=== PATIENT | male | born 1965 | race Caucasian/White ===

== ENCOUNTER → 2019-02-17 14:39 | Outpatient (CLI) | payer OTHER ==
[2013-04-21 09:39] VITALS: BMI 31.0
[~2019-02-17 14:39] MED LIST: BAYER CHEWABLE81 MG PO; PLAVIX75 MG PO; PRAVACHOL40 MG PO; PRILOSEC20 MG
[2019-02-19 09:24] VITALS: BMI 32.4
== END | disposition home or self-care (01) ==
LOC: D.RAD 14:39
PROVIDERS: ATTEND Nurse Practitioner Family
DX: R05 Cough (principal)

== ENCOUNTER 2019-02-18 15:52 | Observation (INO) | payer OTHER ==
[~2019-02-18] VITALS: Ht 177.8 cm; Wt 102.7 kg
--- NOTE | ~2019-02-18 | OP ---
PATIENT NAME: BRITTNEY VENTURA MEDICAL RECORD: [id number] :63 LOCATION:D.M2 D.2115 ADMISSION DATE: SURGEON: LAURI MATHIS MD DATE OF OPERATION: 02/18/2019 PROCEDURES: 1. PTCA stent left circumflex. 2. PTCA stent right coronary artery and PLV. 3. Left heart catheterization. 4. Selective coronary angiography. 5. Left ventriculogram. PROCEDURE IN DETAIL: After informed consent was obtained and after a detailed description of the risks, benefits as well as alternative therapies, the patient elected to proceed with angiogram and angioplasty. The right radial area was prepped, draped in normal sterile fashion. Right radial artery was cannulated via modified Seldinger technique with placement of 6-Nauruan sheath. All catheters exchanged through this sheath. FINDINGS: Left ventriculogram was performed in standard 30-degree ALEMAN view, reveals anterior hypokinesis, but ejection fraction preserved at 50%. SELECTIVE CORONARY ANGIOGRAPHY: 1. Left main is with no significant angiographic disease. 2. Left anterior descending is totally occluded in the mid vessel. Distal left anterior descending fills via right to left collaterals that are well developed. 3. Left circumflex has 90% to 95% stenosis in the mid vessel. 4. Right coronary artery has 90% stenosis times 2 in the RCA and PLV. PTCA STENT OF THE RCA: RCA was addressed with a 3.5 x 22 mm Nhan with PLV 2.5 x 38, 4 mm [place]. Result was 0% residual. PTCA STENT OF THE LEFT CIRCUMFLEX: The stent used was a 3.0 x 15 mm [place], Result was 0% residual stenosis. OVERALL IMPRESSION: Successful PTCA stent of the RCA and left circumflex, both going from 90+ percent initial stenosis to 0% residual. TRANSINT:[id number] Voice Confirmation ID: [id number] DOCUMENT ID: [id number] LAURI MATHIS MD CC: [id number] DICTATION DATE: 02/19/19 1351 RIVET MACHINE OPERATOR: 02/19/19 1747 [facility] [address] [place] [address]
--- NOTE | ~2019-02-18 | DS ---
PATIENT:BRITTNEY SAMSON :63 MEDICAL RECORD: [id number] DISCHARGE SUMMARY ADMISSION DATE: 02/18/19 DISCHARGE DATE: 02/19/19 DATE OF DISCHARGE: 02/19/2019. DIAGNOSES: 1. Non-Q-wave myocardial infarction. 2. Coronary artery disease. 3. PTCA stent right coronary artery and left circumflex this admission. 4. Hyperlipidemia. HOSPITAL COURSE: Mr. Samson presents with a non-Q-wave myocardial infarction, underwent cardiac catheterization revealing severe 3-vessel coronary artery disease, underwent PTCA stent of the RCA and circumflex. He had total occlusion of the LAD, but it fills via right to left collaterals. He was discharged home with addition of aspirin, Plavix, and Pravachol to his medical regimen. No beta fermín was undertaken secondary to bradycardia. He will follow up with [facility] in 1 month. TRANSINT:[id number] Voice Confirmation ID: [id number] DOCUMENT ID: [id number] LAURI MATHIS MD CC: [id number] DICTATION DATE: 02/19/19 1348 RESOURCE SPECIALIST TEACHER: 02/20/19 0606 DEP CLI 02/19/[address] [address]
--- NOTE | ~2019-02-18 | HEMODYNAMI ---
PATIENT:BRITTNEY VENTURA MEDICAL RECORD: [id number] : 63 [id number] ADMISSION DATE: 02/18/19 Generatedon:02/22/20199:22 Patient name: BRITTNEY VENTURA Patient #: [id number] : 1965 Date of study: 02/19/2019 Page: Of Hemodynamic Procedure Report Patient Data Patient Demographics Procedure consent was obtained First Name: BRITTNEY Gender: Male Last Name: AUDREY : 1965 [facility] Initial: Jacinto Age: 53 year(s) Patient #: [id number] Race: SSN: [id number] Additional ID: [id number] Contact details Address: [address] [place] [address] [address] State: [place] City: [place] Zip code: [address] Admission Admission Data Admission Date: 02/18/2019 Admission Time: 15:52 Arrival Date: 02/18/2019 Arrival Time: 15:52 Admit Source: Other Insurance Payor: Private Room #: D.2115 health insurance [facility] #: [id number] Height (in.): 70.08 BSA: 2.2 (m2) Height (cm.): 178 BMI: 32.51 (kg/m2) Weight (lbs.): 227.08 Weight (kg.): 103 Lab Results Lab Result Date: 02/19/2019 Lab Result Time: 0:00 Biochemistry Name Units Result Min Max BUN mg/dl 22 --(----)-* 7 18 Creatinine mg/dl 1.2 --(---*)-- 0.6 1.3 eGFR ml/min 67.29524 *-(----)-- 90 120 NONAFRICAN CBC Name Units Result Min Max Hemoglobin g/dl 13.4 -*(----)-- 13.5 17.5 Procedure Procedure Types Cath Procedure Diagnostic Procedure LHC LHC w/Coronaries Sedation Charges Moderate Sedation up to 30 minutes PCI Procedure Coronary Stent Coronary Stent Initial x2 Coronary Stent Additional Procedure Description Procedure Date Procedure Date: 02/19/2019 Procedure Start Time: 13:20 Procedure End Time: 13:44 Procedure Staff Name Function Fadia Young RT Monitor Colt Yang RN Nurse Conner Iniguez MD Performing Physician Angela Pang RT Scrub Procedure Data Cath Procedure Fluoroscopy Diagnostic fluoroscopy Total fluoroscopy Time: 6.7 time: 6.7 min min Diagnostic fluoroscopy Total fluoroscopy dose: dose: 1298 mGy 1298 mGy Contrast Material Contrast Material Type Amount (ml) Isovue 300 130 Entry Location Entry Primary Successful Side Size Upsize Upsize Entry Closure Rosas ccessful Closure Location (Fr) 1 (Fr) 2 (Fr) Remarks Device Remarks Radial Right 6 Fr Mechanical artery Short Compression Estimated blood loss: 5 ml Diagnostic catheters Device Type Used For End Catheter Placement DIAGNOSTIC [place] 110cm 5 Multi-vessel Fr catheter ([id number]) Angiography Procedure Complications No complications Procedure Medications Medication Administration Route Dosage Oxygen etCO2 Nasal cannula 2 l/min Lidocaine 2% added to field 20 Heparin Flush Bag added to field 2 bags (1000units/500ml NS) 0.9% NaCl I.V. 100 ml/hr Radial Cocktail I.A. 1 syringe (Verapamil 2mg/Nitro 400mcg/Heparin 1500units) Versed I.V. 2 mg Fentanyl I.V. 100 mcg Versed I.V. 2 mg Fentanyl I.V. 100 mcg Heparin Bolus I.V. 4000 units Integrilin (Bolus I.V. 9 ml 2mg/ml) Hemodynamics Rest BSA: 2.2 (m2) HGB: 13.4 (g/dl) O2 Consumption: Estimated: 277.09 (ml/min) O2 Con sumption indexed: Estimated:125.95 (ml/min/m) Heart Rate: 89 (bpm) Pressure Samples Time Site Value (mmHg) Purpose Heart Use Rate(bpm) 13:22 LV 60/8,9 Snapshot 82 Snapshots Pre Cath Intra NCS Post Cath Vital Signs Time Heart Resp SPO2 etCO2 NIBP (mmHg) Rhythm Pain Sedation Rate (ipm) (%) (mmHg) Status Level (bpm) 13:09:10 85 12 100 31.6 146/88(125) NSR 0 (11) 10(A) , No pain 13:13:26 83 15 96 17.3 128/87(98) NSR 0 (11) 10(A) , No pain 13:17:38 69 23 98 28.6 129/77(110) NSR 0 (11) 10(A) , No pain 13:21:56 86 12 98 33.1 123/61(98) NSR 0 (11) 9(A) , No pain 13:26:08 84 11 96 33.1 113/64(82) NSR 0 (11) 9(A) , No pain 13:30:16 86 21 97 35.4 114/70(93) NSR 0 (11) 9(A) , No pain 13:34:24 82 22 97 34.6 118/68(87) NSR 0 (11) 10(A) , No pain 13:38:34 81 13 97 36.1 121/73(87) NSR 0 (11) 10(A) , No pain 13:42:48 73 12 95 36.1 104/60(88) NSR 0 (11) 10(A) , No pain Medications Time Medication Route Dose Verified Delivered Reason Not es Effectiveness by by 13:11:18 Oxygen etCO2 2 l/min Conner Gregory used for Nasal Hira Yang RN procedure cannula 13:11:28 Lidocaine 2% added 20ml Conner Conner for local to vial Hira Iniguez MD anesthetic field 13:11:34 Heparin Flush added 2 bags Conner Prieto used for Bag to Hira Iniguez MD procedure (1000units/500ml field NS) 13:11:42 0.9% NaCl I.V. 100 Conner Gregory Per physician ml/hr Hira Yang RN 13:12:02 Versed I.V. 2 mg Conner Escaleraie for sedation Hira Yang RN 13:12:09 Fentanyl I.V. 100 mcg Conner Escaleraie for sedation Hira Yang RN 13:17:24 Versed I.V. 2 mg Conner Buffie for sedation Hira Yang RN 13:17:30 Fentanyl I.V. 100 mcg Conner Escaleraie for sedation Hira Yang RN 13:21:21 Radial Cocktail I.A. 1 Conner Prieto for (Verapamil syringe Hira Iniguez MD vasodilation 2mg/Nitro 400mcg/Hepari 13:27:43 Heparin Bolus I.V. 4000 Conneraries Escaleraie for nikunj ified units Hira Yang RN anticoagulation with dr iniguez 13:31:19 Integrilin I.V. 9 ml Conner Gregory for was tae 1 (Bolus 2mg/ml) Hira Yang RN antiplatelet ml of therapy vial Procedure Log Time Note 12:49:32 Diagnostic Cath Status : Urgent 12:51:00 Procedure Status Urgent Heart Cath (IP). 12:51:06 Angela Pang RT(R) sent for patient. Start room use. 12:51:07 Time tracking: Regular hours (M-F 7:00 - 5:00) 12:51:11 Plan of Care:Hemodynamics will remain stable., Cardiac rhythm will remain stable., Comfort level will be maintained., Respiratory function will remain adequate., Patient/ family verbilizes understanding of procedure., Procedure tolerated without complication., Recovers from procedure without complications.. 12:52:01 Informed consent obtained and on chart 12:54:54 Admit Source: Other 12:55:02 Arrival Date: 02/18/2019 3:52:00 PM 12:55:16 Insurance Payor : Private health insurance 12:55:26 Patient Height : 70.08 inches 12:55:30 Patient Weight : 227.08 lbs 12:56:46 Lab Result : eGFR NONAFRICAN 67.74309 ml/min 12:56:46 Lab Result : Hemoglobin 13.4 g/dl 12:56:46 Lab Result : BUN 22 mg/dl 12:56:46 Lab Result : Creatinine 1.2 mg/dl 12:56:59 2) 60-89 Mildly reduced kidney function, and other findings (as for stage 1) point to kidney disease. 12:57:09 Maximum allowable contrast dose (3.7 X eGFR X 0.75)185 ml. 12:59:16 Risk of Mortality: 1.1 12:59:19 Risk of blood transfusion: 0.1 12:59:23 Risk of EVETTE: 4.3 12:59:30 Patient received from Med II to CCL 2 Alert and oriented. Tansferred to table in Supine position. 12:59:32 Correct patient and procedure confirmed by team. 12:59:32 Warm blankets applied, and thuy hugger turned on for patient comfort. 12:59:33 ECG and BP/O2 sat monitors applied to patient. 13:08:04 Vital chart was started 13:08:05 Baseline sample Acquired. 13:08:10 Rhythm: sinus tachycardia 13:08:11 Full Disclosure recording started 13:08:15 H&P Date Dictated: 02/19/2019 New H&P dictated by physician.. 13:08:16 Pre-procedure instructions explained to patient. 13:08:17 Pre-op teaching completed and patient verbalized understanding. 13:08:23 Family in patients room. 13:08:25 Patient NPO since Midnight. 13:08:42 Is the patient allergic to Iodine/contrast media? No. 13:08:43 Was the patient premedicated? Yes 13:08:44 Is patient on blood thinner?Yes 13:08:46 ACC The patient was administered the following blood thiners within the last 24 hours: ACCPlavix 13:08:48 Patient diabetic? No. 13:08:52 Previous problem with sedation/anesthesia? No ? 13:08:53 Snore? Yes 13:08:54 Sleep apnea? No 13:08:55 Deviated septum? No 13:08:56 Sticks out tongue? Yes 13:08:56 Opens mouth fully? Yes 13:08:58 Airway obstruction? No ? 13:09:00 Dentures? No ? 13:09:05 Pre procedure: right dorsailis pedis pulse 2+ Normal; easily identifiable; not easily obliterated 13:09:07 Pre procedure: left dorsailis pedis pulse 2+ Normal; easily identifiable; not easily obliterated 13:09:09 Patient pain scale 0/10 ?. 13:09:14 IV patent on arrival in left forearm with 0.9% NaCl at [facility]. 13:09:16 Lab results completed and on chart. 13:09:20 Right Radial & Right Groin area was prepped with chlora-prep and draped in sterile fashion 13:09:21 Sharps counted by scrub and verified by R.N. 13:09:21 Alarms reviewed by R. N. 13::23 Final Timeout: patient, procedure, and site verified with staff and physician. All members of the team are in agreement. 13::23 --------ALL STOP TIME OUT------ 13:09:23 Physician arrived 13:09:25 Right Radial & Right Groin site verified by team. 13:09:29 Fire Safety Assessment: A--An alcohol-based skin anteseptic being used preoperatively., C--Open oxygen or nitrous oxide is being used., D--An ESU, laser, or fiber-optic light is being used. 13:09:32 Physical assessment completed. ASA score P 2 - A patient with mild systemic disease as per Conner Iniguez MD. 13:09:36 Sedation plan: IV Moderate Sedation Medication:Versed, Fentanyl 13:09:42 Use device set Radial Dx or PCI 13:09:43 ACIST Syringe (76379) opened to sterile field. 13:09:44 ACIST Hand Control (57530) opened to sterile field. 13:09:44 Bag Decanter (2002S) opened to sterile field. 13:09:44 Medline Cath Pack ([id number]) opened to sterile field. 13:09:45 ACIST Manifold (32615) opened to sterile field. 13:09:46 Tegaderm 4 x 4 (1626W) opened to sterile field. 13:09:47 MBrace Wrist Support (076873489) opened to sterile field. 13:09:49 SHEATH 6FR RAIN (0404368) opened to sterile field. 13:09:50 EMERALD Guide Wire (581-334) opened to sterile field. 13:11:18 Oxygen 2 l/min etCO2 Nasal cannula was administered by Colt Yang RN; used for procedure; Verbal order read back and verified. 13:11:28 Lidocaine 2% 20ml vial added to field was administered by Conner Iniguez MD; for local anesthetic; Verbal order read back and verified. 13:11:34 Heparin Flush Bag (1000units/500ml NS) 2 bags added to field was administered by Conner Iniguez MD; used for procedure; Verbal order read back and verified. 13:11:42 0.9% NaCl 100 ml/hr I.V. was administered by Colt Yang RN; Per physician; Verbal order read back and verified. 13:12:02 Versed 2 mg I.V. was administered by Colt Yang RN; for sedation; Verbal order read back and verified. 13:12:09 Fentanyl 100 mcg I.V. was administered by Colt Yang RN; for sedation; Verbal order read back and verified. 13:16:00 Zero performed for pressure channel P1 13:16:27 Zero performed for pressure channel P1 13:17:24 Versed 2 mg I.V. was administered by Colt Yang RN; for sedation; Verbal order read back and verified. 13:17:30 Fentanyl 100 mcg I.V. was administered by Colt Yang RN; for sedation; Verbal order read back and verified. 13:18:03 Zero performed for pressure channel P1 13:19:42 Procedure started. 13:20:02 Local anesthetic to right radial artery with Lidocaine 2% by Conner Iniguez MD.INITIAL ACCESS ONLY 13:20:17 A 6 Fr Short sheath was inserted into the Right Radial artery 13:21:04 A DIAGNOSTIC [place] 110cm 5 Fr catheter ([id number]) was advanced over the wire and used for Multi-vessel Angiography. 13:21:21 Radial Cocktail (Verapamil 2mg/Nitro 400mcg/Heparin 1500units) 1 syringe I.A. was administered by Conner Iniguez MD; for vasodilation; Verbal order read back and verified. 13:22:11 LV hemodynamics recorded. 13:22:12 LV gram done using ALEMAN 13:22:15 Injector settings: Ml/sec: 5, Volume: 15, 13:22:28 EF : 50 % 13:22:43 LCA angiography performed. 13:23:19 Injector settings: Ml/sec: 3, Volume: 6, 13:24:03 Catheter removed. 13:25:06 GUIDE 6FR AR 2.0 catheter ([id number]) opened to sterile field. 13:25:13 6 Fr ar 2 guide catheter was inserted over the wire 13:25:39 RCA angiography performed. 13:25:42 Injector settings: Ml/sec: 3, Volume: 6, 13:26:52 ACCDominant side:Co-Dominant 13:26:52 GUIDE 6FR XBLAD 3.5 catheter ([id number]) opened to sterile field. 13:26:53 INFLATOR Merit BasixCompak (XY9587) opened to sterile field. 13:26:59 Proceeding to intervention. 13:27:43 Heparin Bolus 4000 units I.V. was administered by Colt Yang RN; for anticoagulation; verified with dr iniguez Verbal order read back and verified. 13:28:13 asahi minamo wire opened to sterile field 13:28:14 minamo wire advanced. 13:29:27 ACC Pre-intervention HILTON Flow is 3. 13:29:37 Pre PCI Site: [place] PLB has 90% stenosis. 13:29:40 Place stent Inflation Number: 1 A REKHA RX 2.5 x 34 stent ([id number]) was prepped and advanced across the R PAV 90. The stent was deployed at 13 [place] for 0:10 (min:sec) 0. 13:30:30 Stent catheter was removed intact over wire. 13:31:19 Integrilin (Bolus 2mg/ml) 9 ml I.V. was administered by Colt Yang RN; for antiplatelet therapy; wasted 1 ml of vial Verbal order read back and verified. 13:31:32 Pre PCI Site: [place] mRCA has 90% stenosis. 13:31:38 Place stent Inflation Number: 1 A REKHA RX 3.5 x 22 stent ([id number]) was prepped and advanced across the Mid RCA 90. The stent was deployed at 13 [place] for 0:10 (min:sec) 0. 13:32:07 Post PCI Site: [place] PLB has 0% stenosis. 13:32:12 Post PCI Site: [place] mRCA has 0% stenosis. 13:32:29 Stent catheter was removed intact over wire. 13:32:39 Guide catheter removed. 13:32:39 Wire removed. 13:32:52 6 Fr xblad 3.5 guide catheter was inserted over the wire 13:34:43 minamo wire advanced. 13:35:25 Wire advanced across lesion. 13:36:53 ACC Pre-intervention HILTON Flow is 3. 13:37:01 Pre PCI Site: [place] mCirc has 90% stenosis. 13:37:33 Place stent Inflation Number: 1 A REKHA RX 3.0 x 15 stent ([id number]) was prepped and advanced across the Mid CX 90. The stent was deployed at 11 [place] for 0:10 (min:sec) 0. 13:37:37 Stent catheter was removed intact over wire. 13:37:38 Post PCI Site: [place] mCirc has 0% stenosis. 13:37:38 ACC Post-intervention HILTON Flow is 3. 13:37:38 Wire removed. 13:37:38 Guide catheter removed. 13:37:43 ZEPHYR REGULAR TR BAND (838773) opened to sterile field. 13:37:58 Sheath removed intact; hemostasis achieved with Mechanical Compression to the Right Radial artery. 13:38:55 Procedure ended.(Physican Out) 13:39:08 Fluoroscopy time 06.70 minutes. 13:39:12 Fluoroscopy dose: 1298 mGy 13:39:12 Flurop Dose total: 1298 13:39:18 Dose Area Product 70289 mGy/cm. 13:39:28 Contrast amount:Isovue 300 130ml. 13:40:16 Maximum allowable dose exceeded? No. 13:40:17 Sharps counted by scrub and verified by R.N. 13:40:20 [place] band inflated with 10cc of air. 13:40:21 Insertion/operative site no bleeding no hematoma. 13:40:25 Post-op/insertion site Right Radial artery dressed using a 4 x 4 and Tegaderm. 13:40:27 Post Procedure Pulses reassessed and unchanged 13:40:36 Post procedure rhythm: unchanged. 13:40:45 Estimated blood loss: 5 ml 13:40:48 Patient needs reinforcement of post procedure teaching. 13:40:48 Post procedure instruction explained to patient.Patient verbalizes understanding. 13:41:20 Procedure type changed to Cath procedure, Diagnostic procedure, LHC, C w/Coronaries, Sedation Charges, Moderate Sedation up to 30 minutes, PCI procedure, Coronary Stent, Coronary Stent Initial x2, Coronary Stent Additional 13:43:44 Procedure and supply charges have been captured, reviewed, submitted and are correct. 13:43:51 Procedure Complication : No complications 13:44:02 Vital chart was stopped 13:44:04 [facility] Findings: MVD- PCI performed (see procedure note) 13:44:06 Operative report dictated upon procedure completion. 13:44:07 See physician's report for complete and final results. 13:44:10 Report given to [facility]. 13:44:13 Patient transfered to [facility] with Stretcher. 13:44:15 Full Disclosure recording stopped 13:44:15 Procedure ended. 13:44:25 ACC-PCI Only Patient was given prescriptions, or instructed by Conner Iniguez MD to start/continue the following medications upon discharge: Plavix 13:44:28 End room use (Document Last) 13:37:38 ACT drawn and resulted at OOR seconds. (normal therapeutic range 180-240 seconds). Intervention Summary Intervention Notes Time ActionType Lesion and Equipment Used Action# Pressure Duration Attributes 13:29:40 Place stent R PAV REKHA RX 2.5 x 1 13 00:10 34 stent ([id number]) 13:31:38 Place stent Mid RCA REKHA RX 3.5 x 1 13 00:10 22 stent ([id number]) 13:37:33 Place stent Mid CX REKHA RX 3.0 x 1 11 00:10 15 stent ([id number]) Device Usage Item Name Manufacture Quantity Catalog Hospital Part Current [facility] Lot# / Number Charge Number Stock Stock Serial# Code ACIST Syringe Acist 1 95668 794091 584533 124167 20 (27567) Medical Systems Inc Medline Cath Medline 1 [id number] 732804 98756 532120 5 Pack ([id number]) Bag Decanter Microtek 1 2002S 034917 23471 065633 5 (2002S) Medical Inc. ACIST Hand Acist 1 88147 230250 848473 111031 5 Control Medical (09664) Systems Inc ACIST Manifold Acist 1 13378 570594 876281 804132 5 (98575) Medical Systems Inc Tegaderm 4 x 4 3M 1 1626W 916568 032062 762118 5 (1626W) MBrace Wrist Advanced 1 140-0250-00 129382 50710 741789 5 Support Vascular (563809677) Dynamics SHEATH 6FR Cardinal 1 3965930 187557 7909907 943592 5 RAIN (1912839) Health EMERALD Guide Cardinal 1 502-455 631562 931644 869300 5 Wire (502-455) Health DIAGNOSTIC Terumo 1 40-4173 367169 102130 874485 5 [place] 110cm 5 Fr catheter (357890) GUIDE 6FR AR Medtronic 1 [id number] 102683 26176 186048 1 2.0 catheter (VR9TI53) GUIDE 6FR Cardinal 1 [id number] 474882 607409 661172 10 XBLAD 3.5 Health catheter (08255293) INFLATOR Merit Merit 1 GS3358 929527 222681 764874 15 comScore (IZ3080) REKHA RX 2.5 x Medtronic 1 [id number] 200254 9811360 723719 5 [id number] 34 stent ([id number]) REKHA RX 3.5 x Medtronic 1 [id number] 481024 8256552 274487 5 [id number] 22 stent ([id number]) REKHA RX 3.0 x Medtronic 1 [id number] 969988 4963804 455307 5 [id number] 15 stent ([id number]) ZEPHYR REGULAR Cardinal 1 629527 084231 6052373 684322 5 [facility] (127440) Signature Audit [place] Stage Time Signature Unsigned Intra-Procedure 02/19/2019 Fadia Young 1:47:34 PM RT(R) Intra-Procedure 02/19/2019 Colt Yang RN 1:47:59 PM Intra-Procedure 02/19/2019 Conner Iniguez MD 1:48:20 PM 02/22/2019 9:21:10 AM Intra-Procedure 02/22/2019 Conner Iniguez 9:22:50 AM [id number] [place] [address]
[~2019-02-18 15:52] MED LIST changes: -BAYER CHEWABLE81 MG PO; -PLAVIX75 MG PO; -PRAVACHOL40 MG PO
[2019-02-18 16:25] LABS: BASOPHILS 0.4 % (0-2); EOSINOPHILS 0.7 % (0-7); HEMATOCRIT 42.5 % (42.0-54.0); HEMOGLOBIN 14.3 g/dL (13.5-17.5); IMMATURE GRANULOCYTES 0.9 % (0-5); LYMPHOCYTES 25.4 % (15-50); MCH 30.2 pg (26.0-34.0); MCHC 33.6 g/dL (31.0-37.0); MCV 89.9 fL (80.0-100.0); MEAN PLATELET VOLUME 9.5 fL (7.4-10.4); MONOCYTES 8.2 % (2-11); NEUTROPHILS 64.4 % (40-80); PLATELET COUNT 170 10x3/uL (130-400); RBC 4.73 10x6/uL (4.20-6.10); RDW 12.6 % (11.5-14.5); WBC 5.6 10x3/uL (4.8-10.8)
[2019-02-18 16:50] LABS: APTT 44.7 SECONDS (22.8-39.4); INR 1.15 (0.85-1.17); PROTIME 14.2 SECONDS (11.6-15.0)
[2019-02-18 16:58] LABS: CALC OSMOLALITY 284 mosm/kg (275-300); CALCIUM 9.2 mg/dL (8.5-10.1); CARBON DIOXIDE 28.4 mmol/L (21.0-32.0); CHLORIDE - SERUM 106 mmol/L (98-107); CREATININE - SERUM 1.3 mg/dL (0.6-1.3); GLUCOSE 98 mg/dL (74-106); POTASSIUM - SERUM 3.8 mmol/L (3.5-5.1); SODIUM 141 mmol/L (136-145); UREA NITROGEN 24 mg/dL (7-18); eGFR NON AFRICAN AMERICAN 61 mL/min (90-120)
[2019-02-18 17:14] LABS: ALBUMIN 3.9 g/dL (3.4-5.0); ALKALINE PHOSPHATASE 67 U/L (46-116); ALT (SGPT) 49 U/L (10-68); BILIRUBIN - TOTAL 0.25 mg/dL (0.2-1.3); CKMB 1.5 U/L (0.0-3.6); CREATINE KINASE 82 UL (21-232); MAGNESIUM - SERUM 1.8 mg/dL (1.8-2.4); PROTEIN - SERUM 7.5 g/dL (6.4-8.2); TROPONIN-I < 0.017 ng/mL (0.000-0.060)
--- NOTE | 2019-02-18 19:39 | NUR ---
RECEIVED BEDSIDE REPORT. PATIENT IS ALERT AND ORIENTED, RESTING COMFORTABLY IN BED. RESPIRATIONS ARE EVEN AND UNLABORED. NO S/S OF DISTRESS. NO C/O PAIN. CALL LIGHT WITHIN REACH. WILL CPOC.
[2019-02-18 20:00] VITALS: BP 142/88
[2019-02-19 00:58] VITALS: BP 107/66; BMI 32.4
[2019-02-19 02:44] LABS: BASOPHILS 0.4 % (0-2); EOSINOPHILS 1.5 % (0-7); HEMATOCRIT 39.5 % (42.0-54.0); HEMOGLOBIN 13.4 g/dL (13.5-17.5); IMMATURE GRANULOCYTES 0.7 % (0-5); LYMPHOCYTES 29.5 % (15-50); MCHC 33.9 g/dL (31.0-37.0); MCV 88.6 fL (80.0-100.0); MEAN PLATELET VOLUME 9.2 fL (7.4-10.4); MONOCYTES 9.5 % (2-11); NEUTROPHILS 58.4 % (40-80); PLATELET COUNT 164 10x3/uL (130-400); RBC 4.46 10x6/uL (4.20-6.10); RDW 12.6 % (11.5-14.5); WBC 5.4 10x3/uL (4.8-10.8)
[2019-02-19 03:13] LABS: ALBUMIN 3.1 g/dL (3.4-5.0); ALKALINE PHOSPHATASE 53 U/L (46-116); ALT (SGPT) 40 U/L (10-68); BILIRUBIN - TOTAL 0.35 mg/dL (0.2-1.3); CALC OSMOLALITY 283 mosm/kg (275-300); CALCIUM 8.4 mg/dL (8.5-10.1); CARBON DIOXIDE 25.7 mmol/L (21.0-32.0); CHLORIDE - SERUM 108 mmol/L (98-107); CREATINE KINASE 73 UL (21-232); CREATININE - SERUM 1.2 mg/dL (0.6-1.3); GLUCOSE 96 mg/dL (74-106); POTASSIUM - SERUM 4.1 mmol/L (3.5-5.1); PROTEIN - SERUM 5.9 g/dL (6.4-8.2); SODIUM 141 mmol/L (136-145); UREA NITROGEN 22 mg/dL (7-18); eGFR NON AFRICAN AMERICAN 67 mL/min (90-120)
[2019-02-19 03:16] LABS: TROPONIN-I 0.336 ng/mL (0.000-0.060)
[2019-02-19 06:37] LABS: CKMB 2.3 U/L (0.0-3.6); CREATINE KINASE 71 UL (21-232)
[2019-02-19 06:38] LABS: TROPONIN-I 0.247 ng/mL (0.000-0.060)
[2019-02-19 08:05] VITALS: BP 131/82
[2019-02-19 09:24] VITALS: Ht 177.8 cm; Wt 102.7 kg
[2019-02-19 13:15] VITALS: BP 130/73
--- NOTE | 2019-02-19 13:44 | HP ---
PATIENT: BRITTNEY VENTURA MEDICAL RECORD: [id number] ACCOUNT: [id number] LOCATION:[facility].2115 : 63 ADMISSION DATE: 02/18/19 PCP: DALE MILLAN MD HISTORY AND PHYSICAL EXAMINATION DIAGNOSES: 1. Non-Q-wave myocardial infarction. 2. Coronary artery disease. 3. Previous percutaneous transluminal coronary angioplasty stent. 4. Hyperlipidemia. HISTORY OF PRESENT ILLNESS: This is a gentleman who has a past history of coronary artery disease. Last cardiac intervention was years ago. For 1 month, he has been having episodes of chest pain, worsened. His troponin is positive. The EKG has nonspecific ST-T abnormalities in the lateral leads. PHYSICAL EXAMINATION: CONSTITUTIONAL/GENERAL APPEARANCE: Well nourished, well developed, appears stated age. EYES: Lids and conjunctivae noninjected. No discharge. No pallor. ENT: Lips within normal limit. No cyanosis. No pallor. NECK: Carotid arteries, bilateral normal upstroke. No bruits. No thrills. No jugular venous pressure or distention. CERVICAL LYMPH NODES: Nontender. Nonenlarged. THYROID: Not enlarged. No nodules. CARDIOVASCULAR: Precordial exam, nondisplaced. No heaves or pericardial thrills. Rate and rhythm, regular. Heart sounds, normal S1, normal S2. No S3, no gallop, no rub. Systolic murmur, not heard. Diastolic murmur, not heard. RESPIRATORY: Respiratory effort, unlabored. Normal curvature. No thoracic deformity. No chest wall tenderness. Percussion, resonant. Auscultation, clear. No wheezes, no rales, no rhonchi. ABDOMEN: Soft, nondistended, nontender. No abdominal pain, no vomiting and normal appetite. MUSCULOSKELETAL: No joint tenderness, normal gait, normal tone. SKIN: Warm and dry. OVERALL IMPRESSION: Non-Q-wave myocardial infarction. At this time, we will load him with Plavix. He has already received aspirin, heart rates in the 60s and systolic blood pressure is 107. Hence, there is little room for further medical management. We will proceed with coronary angiography. Further care depends upon the findings of the angiography. TRANSINT:[id number] Voice Confirmation ID: [id number] DOCUMENT ID: [id number] LAURI MATHIS MD at 1344 CC: [id number] DICTATION DATE: 02/19/19925 COAL SCREENER: 02/19/[address] [facility] [address] [place] [address]
[2019-02-19] MEDS ORDERED: PRAVACHOL40 MG PO ×2 (15:04→15:11)
[2019-02-19] MEDS ORDERED: PLAVIX75 MG PO ×2 (15:04→15:11)
[2019-02-19] MEDS ORDERED: BAYER CHEWABLE81 MG PO ×2 (15:08→15:11)
[2019-02-19 16:22] VITALS: BP 117/74
--- NOTE | 2019-02-19 17:53 | NUR ---
REVIEWED DISCHARGE INSTRUCTIONS WITH PT STATES UNDERSTANDING COPY GIVEN DCD SALINE LOCK TO RAC WITH IV CATHETER INTACT SITE FREE OF REDNESS OR EDEMA PT DISCHARGED HOME IN STABLE CONDITION WITH ALL PERSONAL BELONGINGS VIA W/C NAD NOTED
== END 2019-02-19 17:53 | disposition home or self-care (01) ==
LOC: D.M2 15:52 → D.ER 15:52 → OBSVTIME 17:25 → D.ER 17:25 → D.M2 17:25 → EDSTATUS 17:44 → D.M2 02-19 17:53
PROVIDERS: Family Medicine; ADMIT Internal Medicine Interventional Cardiology; ATTEND Internal Medicine Interventional Cardiology
DX: I21.4 Non-ST elevation (NSTEMI) myocardial infarction (principal); I25.10 Atherosclerotic heart disease of native coronary artery without angina pectoris; E78.5 Hyperlipidemia, unspecified

== ENCOUNTER 2019-07-06 10:10 | Outpatient (CLI) | payer OTHER ==
[~2019-07-06] VITALS: Ht 177.8 cm; Wt 97.7 kg
--- NOTE | ~2019-07-06 | HEMODYNAMI ---
PATIENT:BRITTNEY VENTURA MEDICAL RECORD: [id number] : 63 LOCATION:[facility] ADMISSION DATE: 07/06/19 Generatedon:07/06/201916:30 Patient name: BRITTNEY VENTURA Patient #: [id number] : 1965 Date of study: 07/06/2019 Page: Of Hemodynamic Procedure Report Patient Data Patient Demographics Procedure consent was obtained First Name: BRITTNEY Gender: Male Last Name: AUDREY : 1965 [facility] Initial: K Age: 54 year(s) Patient #: [id number] Race: SSN: [id number] Additional ID: [id number] Contact details [address]: [address] [place] [address] [address] State: [place] City: [place] Zip code: [address] Past Medical History Allergies: No known allergies Admission Admission Data Admission Date: 07/06/2019 Admission Time: 10:10 Arrival Date: 07/06/2019 Arrival Time: 0:00 Insurance Payor: Private health insurance [facility] #: [id number] Height (in.): 70.08 BSA: 2.16 (m2) Height (cm.): 178 BMI: 30.93 (kg/m2) Weight (lbs.): 216.05 Weight (kg.): 98 Lab Results Lab Result Date: 07/06/2019 Lab Result Time: 0:00 Biochemistry Name Units Result Min Max BUN mg/dl 19 --(----)*- 7 18 Creatinine mg/dl 1.4 --(----)*- 0.6 1.3 eGFR ml/min 56 *-(----)-- 90 120 NONAFRICAN CBC Name Units Result Min Max Hematocrit % 44.9 --(*---)-- 42 54 Hemoglobin g/dl 15.1 --(-*--)-- 13.5 17.5 Procedure Procedure Types Cath Procedure Diagnostic Procedure [facility] w/Coronaries Sedation Charges Moderate Sedation up to 15 minutes Procedure Description Procedure Date Procedure Date: 07/06/2019 Procedure Start Time: 16:16 Procedure End Time: 16:28 Procedure Staff Name Function Pierre Arias MD Performing Physician Sera Chandra RT Monitor Angela Pang RT Scrub Hetal Serrano RN Nurse Rylee Tian RT Laboratory Administrative Director Procedure Data Cath Procedure Fluoroscopy Diagnostic fluoroscopy Total fluoroscopy Time: 1.5 time: 1.5 min min Diagnostic fluoroscopy Total fluoroscopy dose: 601 dose: 601 mGy mGy Contrast Material Contrast Material Type Amount (ml) Isovue 300 47 Entry Location Entry Primary Successful Side Size Upsize Upsize Entry Closure Rosas ccessful Closure Location (Fr) 1 (Fr) 2 (Fr) Remarks Device Remarks Radial Right 6 Fr Mechanical artery Short Compression Estimated blood loss: 5 ml Diagnostic catheters Device Type Used For End Catheter Placement DIAGNOSTIC Spencer 110cm 5 Procedure Fr catheter ([id number]) Procedure Complications No complications Procedure Medications Medication Administration Route Dosage 0.9% NaCl I.V. 100 ml/hr Oxygen etCO2 Nasal cannula 2 l/min Lidocaine 2% added to field 20 Heparin Flush Bag added to field 2 bags (1000units/500ml NS) Radial Cocktail added to field 1 syringe (Verapamil 2mg/Nitro 400mcg/Heparin 1500units) Versed I.V. 2 mg Fentanyl I.V. 50 mcg Versed I.V. 2 mg Fentanyl I.V. 50 mcg Hemodynamics Rest BSA: 2.16 (m2) HGB: 15.1 (g/dl) O2 Consumption: Estimated: 247.73 (ml/min) O2 Co nsumption indexed: Estimated:114.69 (ml/min/m) Heart Rate: 60 (bpm) Pressure Samples Time Site Value (mmHg) Purpose Heart Use Rate(bpm) 16:20 LV 102/8,11 Snapshot 68 16:21 AO 91/64(77) Pullback 68 16:21 LV 77/1,7 Pullback 68 Gradients Valve Time Site 1 Site 2 Mean SEP/DFP Peak To Heart Use (mmHg) (sec/min) Peak Rate (mmHg) (bpm) Aortic 16:21 LV AO 0 68 77/1,7 91/64(77) Calculations Valve P-P Mean Valve Index Valve Source Name Gradient Area Flow (cm2) Aortic 0 0 Snapshots Pre Cath Intra NCS Post Cath Vital Signs Time Heart Resp SPO2 etCO2 NIBP (mmHg) Rhythm Pain Sedation Rate (ipm) (%) (mmHg) Status Level (bpm) 16:07:42 67 13 99 32.6 144/78(124) NSR 0 (11) 10(A) , No pain 16:12:04 65 13 100 34.5 143/84(121) NSR 0 (11) 10(A) , No pain 16:16:26 62 12 96 33.7 121/81(94) NSR 0 (11) 10(A) , No pain 16:20:44 67 13 98 37.4 120/68(85) NSR 0 (11) 10(A) , No pain 16:25:01 70 12 97 39.7 124/72(101) NSR 0 (11) 10(A) , No pain Medications Time Medication Route Dose Verified Delivered Reason Notes E ffectiveness by by 16:08:02 0.9% NaCl I.V. 100 Pierre Hetal used for ml/hr Hugo Zach procedure MD BISHOP 16:08:09 Oxygen etCO2 2 l/min Pierre Hetal used for Nasal Hugo Zach procedure cannula MD BISHOP 16:08:15 Lidocaine 2% added 20ml Pierre Jay for local [facility] MD VARGAS 16:08:19 Heparin Flush added 2 bags Pierre Jay used for Bag to [facility] procedure (1000units/500ml field MD VARGAS NS) 16:08:25 Radial Cocktail added 1 Pierre Jay used for (Verapamil to syringe Hugo Hugo procedure 2mg/Nitro field MD VARGAS 400mcg/Heparin 1500units) 16:12:05 Versed I.V. 2 mg Pierre Hetal for HugoDevang Serrano sedation MD BISHOP 16:12:14 Fentanyl I.V. 50 mcg Pierre Hetal for HugoDevang Serrano sedation MD BISHOP 16:18:36 Versed I.V. 2 mg Pierre Hetal for HugoDevang Serrano sedation MD BISHOP 16:18:41 Fentanyl I.V. 50 mcg Pierre Hetal for HugoDevang Serrano sedation MD BISHOPdigital marketing program manager Log Time Note 15:53:06 Informed consent obtained and on chart 15:53:32 Procedure Status Urgent Heart Cath (IP). 15:53:33 Time tracking: Regular hours (M-F 7:00 - 5:00) 15:53:36 Plan of Care:Hemodynamics will remain stable., Cardiac rhythm will remain stable., Comfort level will be maintained., Respiratory function will remain adequate., Patient/ family verbilizes understanding of procedure., Procedure tolerated without complication., Recovers from procedure without complications.. 15:54:04 Rylee Tian RT(R) sent for patient. Start room use. 16:00:37 Arrival Date: 07/06/2019 12:00:00 AM 16:01:37 Patient Height : 70.08 inches 16:01:43 Patient Weight : 216.05 lbs 16:02:14 Insurance Payor : Private health insurance 16:03:26 Lab Result : Hemoglobin 15.1 g/dl 16:03:26 Lab Result : eGFR NONAFRICAN 56 ml/min 16:03:26 Lab Result : BUN 19 mg/dl 16::26 Lab Result : Creatinine 1.4 mg/dl 16:03: Lab Result : Hematocrit 44.9 % 16:04:11 Patient received from ED to CCL 2 Alert and oriented. Tansferred to table in Supine position. 16:04:13 Warm blankets applied, and thuy hugger turned on for patient comfort. 16:04:14 Correct patient and procedure confirmed by team. 16:04:15 ECG and BP/O2 sat monitors applied to patient. 16:06:26 Vital chart was started 16:06:28 Baseline sample Acquired. 16:06:34 Rhythm: sinus rhythm 16:06:36 Full Disclosure recording started 16:06:36 - 16:06:56 H&P Date Dictated: 07/06/2019 Emergent; H&P N/A, ER History on chart.. 16:06:58 Pre-procedure instructions explained to patient. 16:06:59 Pre-op teaching completed and patient verbalized understanding. 16:07:02 Family unavailable. 16:07:04 Patient NPO since Midnight. 16:07:15 Patient allergic to No known allergies 16:07:19 Is the patient allergic to Iodine/contrast media? No. 16:07:21 Was the patient premedicated? Yes 16:07:50 Is patient on blood thinner?Yes 16:07:55 ACC The patient was administered the following blood thiners within the last 24 hours: ACCPlavix 16:07:58 Patient diabetic? No. 16:08:02 0.9% NaCl 100 ml/hr I.V. was administered by Hetal Serrano RN; used for procedure; Verbal order read back and verified. 16:08:08 ----Pre-sedation anethsthesia assessment.---- 16:08:09 Oxygen 2 l/min etCO2 Nasal cannula was administered by Hetal Serrano RN ; used for procedure; Verbal order read back and verified. 16:08:12 Previous problem with sedation/anesthesia? No ? 16:08:14 Snore? Yes 16:08:15 Lidocaine 2% 20ml vial added to field was administered by Pierre Arias MD; for local anesthetic; Verbal order read back and verified. 16:08:16 Sleep apnea? No 16:08:18 Deviated septum? Unknown 16:08:19 Heparin Flush Bag (1000units/500ml NS) 2 bags added to field was administered by Pierre Arias MD; used for procedure; Verbal order read back and verified. 16:08:20 Opens mouth fully? Yes 16:08:23 Sticks out tongue? Yes 16:08:25 Radial Cocktail (Verapamil 2mg/Nitro 400mcg/Heparin 1500units) 1 syring e added to field was administered by Pierre Arias MD; used for procedure; Verbal order read back and verified. 16:08:26 Airway obstruction? No ? 16:08:29 Dentures? No ? 16:11:00 Pre procedure: right dorsailis pedis pulse 1+ Palpable, but thready & weak; easily obliterated 16:11:13 IV patent on arrival in left forearm with 0.9% NaCl at [facility]. 16:11:20 Lab results completed and on chart. 16:11:28 Stress Test: no; N/A ? 16:11:39 Right Radial & Right Groin area was prepped with chlora-prep and draped in sterile fashion 16:11:41 Alarms reviewed by R. N. 16:11:42 Sharps counted by scrub and verified by Beba 16:11:46 Physician arrived 16:11:47 --------ALL STOP TIME OUT------ 16:11:48 Final Timeout: patient, procedure, and site verified with staff and physician. All members of the team are in agreement. 16:11:52 Right Radial & Right Groin site verified by team. 16:11:59 Fire Safety Assessment: A--An alcohol-based skin anteseptic being used preoperatively., C--Open oxygen or nitrous oxide is being used., D--An ESU, laser, or fiber-optic light is being used. 16:12:05 Versed 2 mg I.V. was administered by Hetal Serrano RN; for sedation; Verbal order read back and verified. 16:12:05 Physical assessment completed. ASA score P 2 - A patient with mild systemic disease as per Pierre Arias MD. 16:12:12 3a) 45-59 Moderately reduced kidney function. 16:12:14 Fentanyl 50 mcg I.V. was administered by Hetal Serrano RN; for sedation ; Verbal order read back and verified. 16:12:16 Maximum allowable contrast dose (3.7 X eGFR X 0.75)155 ml. 16:12:22 Sedation plan: IV Moderate Sedation Medication:Versed, Fentanyl 16:12:28 Use device set Radial Dx or PCI 16:12:32 ACIST Syringe (44675) opened to sterile field. 16:12:33 Medline Cath Pack ([id number]) opened to sterile field. 16:12:34 Bag Decanter (2002) opened to sterile field. 16:12:35 ACIST Hand Control (72991) opened to sterile field. 16:12:36 ACIST Manifold (52514) opened to sterile field. 16:12:42 EMERALD Guide Wire (402-558) opened to sterile field. 16:12:52 SHEATH 6FR RAIN (9502504) opened to sterile field. 16:12:56 MBrace Wrist Support (180168529) opened to sterile field. 16:13:28 ACC Patient presents with Stable Angina CCS Anginal Class 4--Inability to carry out any physical activity w/o angina. Angina may occur at rest. 16:16:25 Procedure started. 16:16:45 Local anesthetic to right radial artery with Lidocaine 2% by Pierre Arias MD.INITIAL ACCESS ONLY 16:16:47 SERA NOTIFIED PROCEDURE HAD STARTED. 16:16:58 Risk of Mortality: 2.6 16:17:03 Risk of blood transfusion: 0.9 16:17:08 Risk of EVETTE: 5.2 16:17:56 Zero performed for pressure channel P1 16:18:36 Versed 2 mg I.V. was administered by Hetal Serrano RN; for sedation; Verbal order read back and verified. 16:18:41 Fentanyl 50 mcg I.V. was administered by Hetal Serrano RN; for sedation ; Verbal order read back and verified. 16:18:57 A 6 Fr Short sheath was inserted into the Right Radial artery 16:19:27 A DIAGNOSTIC Spencer 110cm 5 Fr catheter (283206) was advanced over the wire and used for Procedure. 16:20:03 Zero performed for pressure channel P1 16:20:22 Zero performed for pressure channel P1 16:20:42 LV gram done using ALEMAN 16:20:43 LV hemodynamics recorded. 16:20:48 EF : 55 % 16:21:01 Injector settings: Ml/sec: 5, Volume: 15, 16:21:27 LCA angiography performed. 16:21:56 Injector settings: Ml/sec: 3, Volume: 6, 16:23:08 RCA angiography performed. 16:23:12 Injector settings: Ml/sec: 3, Volume: 6, 16:23:59 Catheter removed. 16:24:12 ZEPHYR REGULAR TR BAND (211823) opened to sterile field. 16:24:42 Sheath removed intact; hemostasis achieved with Mechanical Compression to the Right Radial artery. 16:24:44 Procedure ended.(Physican Out) 16:25:04 Contrast amount:Isovue 300 47ml. 16:25:13 Fluoroscopy time 01.50 minutes. 16:25:19 Flurop Dose total: 601 16:25:19 Fluoroscopy dose: 601 mGy 16:25:29 Dose Area Product 09927 mGy/cm. 16:26:37 Maximum allowable dose exceeded? No. 16:26:39 Sharps counted by scrub and verified by R.N. 16:26:43 [place]ier band inflated with 10cc of air. 16:26:53 Post right radial artery:stable 16:27:01 Post-procedure physical assessment completed. ASA score P 2 - A patient with mild systemic disease as per Pierre Arias MD. 16:27:06 Post procedure rhythm: unchanged. 16:27:11 Estimated blood loss: 5 ml 16:27:12 Post procedure instruction explained to patient.Patient verbalizes understanding. 16:27:14 Patient needs reinforcement of post procedure teaching. 16:27:27 Procedure type changed to Cath procedure, Diagnostic procedure, LHC, C w/Coronaries, Sedation Charges, Moderate Sedation up to 15 minutes 16:27:29 Procedure and supply charges have been captured, reviewed, submitted an d are correct. 16:27:39 Procedure Complication : No complications 16:27:42 Vital chart was stopped 16:27:45 [facility] Findings: mild to moderate CAD (<70%) 16:27:51 Operative report dictated upon procedure completion. 16:27:57 See physician's report for complete and final results. 16:28:08 Report given to Pre/Post Procedure Room. 16:28:14 Patient transfered to Pre/Post Procedure Room with Stretcher. 16:28:19 Procedure ended. 16:28:19 Full Disclosure recording stopped Device Usage Item Name Manufacture Quantity Catalog Hospital Part Current Minima l Lot# / Number Charge Number Stock Stock Serial# Code ACIST Acist 1 90051 949993 [id number] 20 Syringe Medical (95747) Systems Inc Medline Medline 1 [id number] [id number] 33102 443143 5 Cath Pack ([id number]) Bag Microtek 1 235935 80614 046725 5 Decanter Medical Inc. () ACIST Hand Acist 1 02526 900293 819798 595583 5 Control Medical (87783) Systems Inc ACIST Acist 1 55907 497472 177131 595714 5 Manifold Medical (38321) Systems Inc EMERALD Cardinal 1 502-455 529760 143053 394747 5 Guide Wire Health (502-455) SHEATH 6FR Cardinal 1 6656384 158579 9291381 998136 5 [facility] Deemelo (0505894) MBrace Advanced 1 140-0250-00 921023 61868 702657 5 Wrist Vascular Support Dynamics ([id number]) DIAGNOSTIC Terumo 1 40-7529 954387 087985 198124 5 Spencer 110cm 5 Fr catheter (610541) ZEPHYR Cardinal 1 540052 884234 1663297 933869 5 REGULAR TR Health BAND (598359) Signature Audit [place] Stage Time Signature Unsigned Intra-Procedure 07/06/2019 Sera 4:29:02 PM Corazon RT(R) (CV) Intra-Procedure 07/06/2019 Hetal Serrano 4:29:37 PM RN Intra-Procedure 07/06/2019 Pierre Farley 4:30:01 PM Devang VARGAS Signatures Performing Physician : Signature : Pierre Arias MD Date : Time : Monitor : Sera Signature : Corazon RT Date : Time : Nurse : Hetal Serrano RN Signature : Date : Time : [address] [place] [address]
[~2019-07-06 10:10] MED LIST changes: +BAYER CHEWABLE81 MG PO; +PLAVIX75 MG PO; +PRAVACHOL40 MG PO
[2019-07-06 10:30] LABS: BASOPHILS 0.4 % (0-2); EOSINOPHILS 1.1 % (0-7); HEMATOCRIT 44.9 % (42.0-54.0); HEMOGLOBIN 15.1 g/dL (13.5-17.5); IMMATURE GRANULOCYTES 0.4 % (0-5); MCH 29.5 pg (26.0-34.0); MCHC 33.6 g/dL (31.0-37.0); MCV 87.9 fL (80.0-100.0); MEAN PLATELET VOLUME 9.4 fL (7.4-10.4); MONOCYTES 7.9 % (2-11); NEUTROPHILS 70.2 % (40-80); PLATELET COUNT 147 10x3/uL (130-400); RBC 5.11 10x6/uL (4.20-6.10); RDW 12.5 % (11.5-14.5); WBC 5.6 10x3/uL (4.8-10.8)
[2019-07-06] MEDS ORDERED: ISOSORBIDE MONO30 M1 PO (10:32)
[2019-07-06 10:36] LABS: INR 0.98 (0.85-1.17)
[2019-07-06 10:37] LABS: APTT 32.2 SECONDS (22.8-39.4)
[2019-07-06 10:39] LABS: CALC OSMOLALITY 279 mosm/kg (275-300); CALCIUM 9.2 mg/dL (8.5-10.1); CARBON DIOXIDE 23.6 mmol/L (21.0-32.0); CHLORIDE - SERUM 103 mmol/L (98-107); CREATININE - SERUM 1.4 mg/dL (0.6-1.3); GLUCOSE 134 mg/dL (74-106); POTASSIUM - SERUM 3.6 mmol/L (3.5-5.1); SODIUM 138 mmol/L (136-145); UREA NITROGEN 19 mg/dL (7-18); eGFR NON AFRICAN AMERICAN 56 mL/min (90-120)
[2019-07-06 10:52] LABS: ALBUMIN 4.1 g/dL (3.4-5.0); ALKALINE PHOSPHATASE 69 U/L (30-120); ALT (SGPT) 42 U/L (10-68); BILIRUBIN - TOTAL 0.43 mg/dL (0.2-1.3); CKMB 0.8 U/L (0.0-3.6); CREATINE KINASE 90 UL (21-232); MAGNESIUM - SERUM 1.8 mg/dL (1.8-2.4); PROTEIN - SERUM 7.4 g/dL (6.4-8.2); TROPONIN-I < 0.017 ng/mL (0.000-0.060)
[2019-07-06 11:18] LABS: CHOL - HDL RATIO 3.4 ratio (2.3-4.9); LDL-HDL RATIO 1.8 ratio (1.5-3.5)
[2019-07-06 11:40] VITALS: Ht 177.8 cm; Wt 97.7 kg
[2019-07-06 12:48] LABS: PLT FUNCT.(P2Y12) PLAVIX 202 PRU (194-418)
[2019-07-06 15:33] VITALS: BP 136/87
--- NOTE | 2019-07-06 16:40 | NUR ---
PT REC'D TO ROOM 2 VIA STRETCHER FROM AIRCRAFT INSTRUMENT MECHANIC. MONITORS ESTAB, PT FOLLOWS COMMANDS. SEE FREIGHT SHIPPING AGENT. ALARMS ON AND C/L IN REACH.
[2019-07-06] MEDS ORDERED: RANEXA500 MG PO (16:42)
--- NOTE | 2019-07-06 16:55 | NUR ---
R WRIST SITE C/D/I, NO S/S BLEEDING OR HEMATOMA. R HAND/ARM WARM WITH PALP PULSES. VSS. C/L IN REACH.
--- NOTE | 2019-07-06 17:25 | NUR ---
R WRIST SITE C/D/I. 3 CC AIR REMOVED FROM Z BAND. WILL CONT CLOSE MONITORING - PT DENIES NEEDS. C/L IN REACH.
--- NOTE | 2019-07-06 17:40 | NUR ---
TOTAL OF 5CC AIR REMOVED FROM Z BAND, NO S/S BLEEDING OR HEMATOMA. VSS. WILL CONT CLOSE MONITORING.
--- NOTE | 2019-07-06 18:00 | NUR ---
ALL AIR REMOVED FROM Z BAND, NO S/S BLEEDING OR HEMATOMA. PIV D/C'D INTACT - DSG APPLIED.
--- NOTE | 2019-07-06 18:15 | NUR ---
R WRIST SITE C/D/I, NO S/S BLEEDING OR HEMATOMA. PT ALLOWED UP TO GET DRESSED.
--- NOTE | 2019-07-06 18:20 | NUR ---
ALL D/C INSTRUCTIONS REVIEWED - INCLUDING TO CALL FOR FOLLOW-UP APPTS, MEDICATION CHANGE, AND RESTRICTIONS. PT VERBALIZES UNDERSTANDING. PT TO BR INDEPENDENTLY.
--- NOTE | 2019-07-06 18:30 | NUR ---
PT D/C'D TO PRIVATE VEHICLE WITH . PT HAS ALL BELONGINGS AND PAPER WORK.
--- NOTE | 2019-07-08 13:35 | OP ---
PATIENT NAME: BRITTNEY VENTURA MEDICAL RECORD: [id number] :63 LOCATION:[facility] ADMISSION DATE: SURGEON: JOHNATHAN GARCIA MD DATE OF OPERATION: 07/06/2019 PROCEDURE: Left heart catheterization, selective coronary angiography, right radial approach. CATHETERS: Radial sheath, [place] catheter. The procedure was well tolerated. The patient was returned to [place]. Sheath was removed. TR band was placed. FINDINGS: Left ventriculography in 30-degree ALEMAN view: Normal wall motion, normal systolic function. CORONARY ANATOMY: LEFT MAIN: Left main is free of disease. LAD: Totally occluded in its proximal third and fills via right to left collaterals as well as some bridging collaterals left to left. CIRCUMFLEX: The area of previous stent is widely patent. There are multiple areas of wall irregularity, but no stenosis greater than 40%. RIGHT CORONARY ARTERY: Again, multiple irregularities with a widely patent stent, but no flow restrictive stenosis. IMPRESSION: Diffuse disease, angina may be related to totally occluded LAD and collateral insufficiency, although she has improved over time and then she will be placed on Ranexa 500 b.i.d. Will be seen back in the office for followup. TRANSINT:[id number] Voice Confirmation ID: [id number] DOCUMENT ID: [id number] JOHNATHAN GARCIA MD at 1335 CC: [id number] DICTATION DATE: 07/06/19 1647 COCKTAIL SERVER: 07/06/19 1720 DEP CLI 07/06/19 [place] [id number] [place] [id number]
== END 2019-07-06 18:32 | disposition home or self-care (01) ==
LOC: D.CATH 10:10 → D.ER 10:10 → D.CLR 10:10 → EDSTATUS 16:22 → D.CLR 16:31 → D.CATH 16:31 → D.CLR 18:32 → EDSTATUS 18:48
PROVIDERS: Internal Medicine Interventional Cardiology; Internal Medicine Nephrology; ATTEND Emergency Medicine
DX: I25.110 Atherosclerotic heart disease of native coronary artery with unstable angina pectoris (principal); R89.0 Abnormal level of enzymes in specimens from other organs, systems and tissues; R06.00 Dyspnea, unspecified